=== PATIENT | female | born 1945 | race Caucasian/White ===

== ENCOUNTER 2023-10-22 07:36 | Outpatient (CLI) | payer MEDICARE, BC | END 2023-10-22 07:37 | disposition home or self-care (01) | LOC: NM 07:36 | PROVIDERS: ATTEND Internal Medicine Gastroenterology | DX: K21.9 Gastro-esophageal reflux disease without esophagitis (principal); R10.13 Epigastric pain; R63.4 Abnormal weight loss | CPT/HCPCS: 78264; A9541 ==